=== PATIENT | male | born 1970 | race Caucasian/White ===

== ENCOUNTER → 2020-11-29 | Outpatient (CLI) | payer OTHER | END | disposition home or self-care (01) | LOC: COVID19 14:19 | PROVIDERS: ATTEND Nurse Practitioner Adult Health | DX: U07.1 COVID-19 (principal) ==

== ENCOUNTER → 2022-06-29 | Outpatient (CLI) | payer OTHER | END | disposition home or self-care (01) | LOC: CARD 12:30 | PROVIDERS: ATTEND Nurse Practitioner Family | DX: I08.0 Rheumatic disorders of both mitral and aortic valves (principal); M43.16 Spondylolisthesis, lumbar region; E11.9 Type 2 diabetes mellitus without complications; E83.110 Hereditary hemochromatosis; E78.5 Hyperlipidemia, unspecified; F33.1 Major depressive disorder, recurrent, moderate; R80.1 Persistent proteinuria, unspecified; Z95.0 Presence of cardiac pacemaker; M79.622 Pain in left upper arm ==

== ENCOUNTER → 2023-05-25 | Outpatient (CLI) | payer OTHER ==
[2023-05-25 13:55] LABS: BASO % 0.6 % (0.0-1.0); EOS % 1.1 % (1.0-4.0); HEMATOCRIT 43.8 % (42.0-52.0); LYMPH # 1.7 10*3/uL (1.3-4.4); LYMPH % 45.7 % (27.0-41.0); MEAN CELL VOLUME 89.9 fl (80.0-94.0); MEAN CORPUSCULAR HGB 32.2 pg (27.0-31.0); MEAN CORPUSCULAR HGB CONC 35.8 g/dl (33.0-37.0); MEAN PLATELET VOLUME 11.9 fl (9.6-12.3); MONO # 0.3 10*3/uL (0.1-1.0); NEUT # 1.6 10*3/uL (2.3-7.9); PLATELET COUNT AUTOMATED 130 10*3/uL (130-400); RED BLOOD COUNT 4.87 10*6/uL (4.50-5.90); RED CELL DISTRI WIDTH 11.8 % (0-14.5); WHITE BLOOD COUNT 3.6 10*3/uL (4.8-10.8)
== END | disposition home or self-care (01) ==
LOC: LAB 13:21
PROVIDERS: ATTEND Family Medicine
DX: E83.110 Hereditary hemochromatosis (principal)

== ENCOUNTER → 2023-05-28 | Outpatient (CLI) | payer OTHER ==
[2023-05-28 08:45] VITALS: BP 142/84
[2023-05-28 09:23] VITALS: BP 131/83
== END | disposition home or self-care (01) ==
LOC: PHLEB 01:31
PROVIDERS: ATTEND Physician Assistant Medical
DX: E83.110 Hereditary hemochromatosis (principal)

== ENCOUNTER → 2023-06-04 | Outpatient (CLI) | payer OTHER ==
[2023-06-04 08:38] LABS: BASO % 0.7 % (0.0-1.0); EOS # 0.1 10*3/uL (0.0-0.4); EOS % 1.2 % (1.0-4.0); HEMATOCRIT 41.8 % (42.0-52.0); LYMPH # 1.8 10*3/uL (1.3-4.4); LYMPH % 43.1 % (27.0-41.0); MEAN CELL VOLUME 88.6 fl (80.0-94.0); MEAN CORPUSCULAR HGB 31.8 pg (27.0-31.0); MEAN CORPUSCULAR HGB CONC 35.9 g/dl (33.0-37.0); MEAN PLATELET VOLUME 11.5 fl (9.6-12.3); MONO # 0.3 10*3/uL (0.1-1.0); NEUT % 47.3 % (47.0-73.0); PLATELET COUNT AUTOMATED 151 10*3/uL (130-400); RED BLOOD COUNT 4.72 10*6/uL (4.50-5.90); RED CELL DISTRI WIDTH 11.9 % (0-14.5); WHITE BLOOD COUNT 4.3 10*3/uL (4.8-10.8)
[2023-06-04 09:02] VITALS: BP 123/81
== END | disposition home or self-care (01) ==
LOC: PHLEB 08:13
PROVIDERS: ATTEND Physician Assistant Medical
DX: E83.110 Hereditary hemochromatosis (principal)

== ENCOUNTER → 2023-06-11 | Outpatient (CLI) | payer OTHER ==
[2023-06-11 08:36] LABS: BASO % 1.1 % (0.0-1.0); EOS # 0.1 10*3/uL (0.0-0.4); EOS % 1.9 % (1.0-4.0); HEMATOCRIT 39.9 % (42.0-52.0); LYMPH # 1.6 10*3/uL (1.3-4.4); LYMPH % 41.8 % (27.0-41.0); MEAN CELL VOLUME 90.1 fl (80.0-94.0); MEAN CORPUSCULAR HGB 32.5 pg (27.0-31.0); MEAN CORPUSCULAR HGB CONC 36.1 g/dl (33.0-37.0); MEAN PLATELET VOLUME 11.5 fl (9.6-12.3); MONO # 0.3 10*3/uL (0.1-1.0); NEUT # 1.7 10*3/uL (2.3-7.9); NEUT % 46.6 % (47.0-73.0); NUCLEATED RED BLOOD CELL 0.8 % (0.0-0.0); PLATELET COUNT AUTOMATED 143 10*3/uL (130-400); RED BLOOD COUNT 4.43 10*6/uL (4.50-5.90); RED CELL DISTRI WIDTH 13.4 % (0-14.5); WHITE BLOOD COUNT 3.7 10*3/uL (4.8-10.8)
[2023-06-11 09:20] VITALS: BP 140/88
[2023-06-11 09:52] VITALS: BP 130/92
== END | disposition home or self-care (01) ==
LOC: PHLEB 01:22
PROVIDERS: ATTEND Physician Assistant Medical
DX: E83.110 Hereditary hemochromatosis (principal)

== ENCOUNTER → 2023-06-25 | Outpatient (CLI) | payer OTHER ==
[2023-06-25 09:10] LABS: BASO % 0.6 % (0.0-1.0); EOS % 1.3 % (1.0-4.0); HEMATOCRIT 42.8 % (42.0-52.0); LYMPH # 1.3 10*3/uL (1.3-4.4); LYMPH % 42.5 % (27.0-41.0); MEAN CELL VOLUME 92.6 fl (80.0-94.0); MEAN CORPUSCULAR HGB 33.1 pg (27.0-31.0); MEAN CORPUSCULAR HGB CONC 35.7 g/dl (33.0-37.0); MEAN PLATELET VOLUME 11.8 fl (9.6-12.3); MONO # 0.2 10*3/uL (0.1-1.0); MONO % 7.8 % (3.0-9.0); NEUT # 1.5 10*3/uL (2.3-7.9); NEUT % 47.2 % (47.0-73.0); PLATELET COUNT AUTOMATED 115 10*3/uL (130-400); RED BLOOD COUNT 4.62 10*6/uL (4.50-5.90); WHITE BLOOD COUNT 3.1 10*3/uL (4.8-10.8)
[2023-06-25 10:19] VITALS: BP 136/80
[2023-06-25 10:26] VITALS: BP 127/77
== END | disposition home or self-care (01) ==
LOC: PHLEB 01:12
PROVIDERS: ATTEND Physician Assistant Medical
DX: E83.110 Hereditary hemochromatosis (principal)

== ENCOUNTER → 2023-07-09 | Outpatient (CLI) | payer OTHER ==
[2023-07-09 10:41] LABS: BASO % 0.9 % (0.0-1.0); EOS # 0.1 10*3/uL (0.0-0.4); EOS % 1.8 % (1.0-4.0); HEMATOCRIT 44.2 % (42.0-52.0); LYMPH # 1.5 10*3/uL (1.3-4.4); LYMPH % 45.4 % (27.0-41.0); MEAN CELL VOLUME 91.5 fl (80.0-94.0); MEAN CORPUSCULAR HGB 33.3 pg (27.0-31.0); MEAN CORPUSCULAR HGB CONC 36.4 g/dl (33.0-37.0); MEAN PLATELET VOLUME 11.7 fl (9.6-12.3); MONO # 0.3 10*3/uL (0.1-1.0); MONO % 8.3 % (3.0-9.0); NEUT # 1.4 10*3/uL (2.3-7.9); PLATELET COUNT AUTOMATED 129 10*3/uL (130-400); RED BLOOD COUNT 4.83 10*6/uL (4.50-5.90); WHITE BLOOD COUNT 3.3 10*3/uL (4.8-10.8)
[2023-07-09 11:00] VITALS: BP 154/94
[2023-07-09 11:50] VITALS: BP 137/97
== END | disposition home or self-care (01) ==
LOC: PHLEB 01:31
PROVIDERS: ATTEND Physician Assistant Medical
DX: E83.110 Hereditary hemochromatosis (principal)

== ENCOUNTER → 2023-07-16 | Outpatient (CLI) | payer OTHER ==
[2023-07-16 11:32] LABS: BASO % 0.5 % (0.0-1.0); EOS # 0.1 10*3/uL (0.0-0.4); EOS % 1.2 % (1.0-4.0); HEMATOCRIT 41.1 % (42.0-52.0); LYMPH # 1.6 10*3/uL (1.3-4.4); LYMPH % 39.6 % (27.0-41.0); MEAN CELL VOLUME 91.3 fl (80.0-94.0); MEAN PLATELET VOLUME 11.5 fl (9.6-12.3); MONO # 0.2 10*3/uL (0.1-1.0); MONO % 5.9 % (3.0-9.0); NEUT # 2.1 10*3/uL (2.3-7.9); NEUT % 52.1 % (47.0-73.0); PLATELET COUNT AUTOMATED 131 10*3/uL (130-400); RED CELL DISTRI WIDTH 12.7 % (0-14.5); WHITE BLOOD COUNT 4.1 10*3/uL (4.8-10.8)
[2023-07-16 11:45] LABS: MEAN CORPUSCULAR HGB 32.7 pg (27.0-31.0)
[2023-07-16 11:46] LABS: MEAN CORPUSCULAR HGB CONC 35.8 g/dl (33.0-37.0)
== END | disposition home or self-care (01) ==
LOC: PHLEB 10:34
PROVIDERS: ATTEND Physician Assistant Medical
DX: E83.110 Hereditary hemochromatosis (principal)

== ENCOUNTER → 2023-07-23 | Outpatient (CLI) | payer OTHER ==
[2023-07-23 10:45] LABS: BASO % 0.8 % (0.0-1.0); EOS # 0.1 10*3/uL (0.0-0.4); EOS % 1.3 % (1.0-4.0); HEMATOCRIT 43.9 % (42.0-52.0); LYMPH # 1.6 10*3/uL (1.3-4.4); LYMPH % 42.7 % (27.0-41.0); MEAN CELL VOLUME 94.4 fl (80.0-94.0); MEAN CORPUSCULAR HGB 32.7 pg (27.0-31.0); MEAN CORPUSCULAR HGB CONC 34.6 g/dl (33.0-37.0); MEAN PLATELET VOLUME 11.4 fl (9.6-12.3); MONO # 0.3 10*3/uL (0.1-1.0); MONO % 8.2 % (3.0-9.0); NEUT # 1.8 10*3/uL (2.3-7.9); NEUT % 46.5 % (47.0-73.0); PLATELET COUNT AUTOMATED 143 10*3/uL (130-400); RED BLOOD COUNT 4.65 10*6/uL (4.50-5.90); RED CELL DISTRI WIDTH 12.8 % (0-14.5); WHITE BLOOD COUNT 3.8 10*3/uL (4.8-10.8)
[2023-07-23 11:35] VITALS: BP 119/76
[2023-07-23 12:00] VITALS: BP 107/80
== END | disposition home or self-care (01) ==
LOC: PHLEB 00:26
PROVIDERS: ATTEND Physician Assistant Medical
DX: E83.110 Hereditary hemochromatosis (principal)

== ENCOUNTER → 2023-08-13 | Outpatient (CLI) | payer OTHER ==
[2023-08-13 10:40] VITALS: BP 140/83
[2023-08-13 11:15] VITALS: BP 143/89
== END ==
LOC: PHLEB 00:15
PROVIDERS: ATTEND Physician Assistant Medical
DX: E83.110 Hereditary hemochromatosis (principal)

== ENCOUNTER → 2023-12-01 | Outpatient (CLI) | payer OTHER ==
[2023-12-01 18:17] LABS: BASO % 0.5 % (0.0-1.0); EOS % 0.9 % (1.0-4.0); HEMATOCRIT 45.2 % (42.0-52.0); LYMPH # 2.1 10*3/uL (1.3-4.4); LYMPH % 46.6 % (27.0-41.0); MEAN CELL VOLUME 87.4 fl (80.0-94.0); MEAN CORPUSCULAR HGB 30.8 pg (27.0-31.0); MEAN CORPUSCULAR HGB CONC 35.2 g/dl (33.0-37.0); MEAN PLATELET VOLUME 11.7 fl (9.6-12.3); MONO # 0.2 10*3/uL (0.1-1.0); MONO % 5.2 % (3.0-9.0); NEUT % 46.3 % (47.0-73.0); PLATELET COUNT AUTOMATED 150 10*3/uL (130-400); RED BLOOD COUNT 5.17 10*6/uL (4.50-5.90); RED CELL DISTRI WIDTH 12.1 % (0-14.5); WHITE BLOOD COUNT 4.4 10*3/uL (4.8-10.8)
== END | disposition home or self-care (01) ==
LOC: LAB 17:14
PROVIDERS: ATTEND Physician Assistant Medical
DX: E83.110 Hereditary hemochromatosis (principal)

== ENCOUNTER → 2024-01-18 | Outpatient (CLI) | payer OTHER ==
[2024-01-18 08:06] LABS: BASO % 0.3 % (0.0-1.0); EOS % 0.9 % (1.0-4.0); HEMATOCRIT 46.7 % (42.0-52.0); LYMPH # 1.7 10*3/uL (1.3-4.4); LYMPH % 48.7 % (27.0-41.0); MEAN CORPUSCULAR HGB 31.6 pg (27.0-31.0); MEAN CORPUSCULAR HGB CONC 35.1 g/dl (33.0-37.0); MEAN PLATELET VOLUME 11.6 fl (9.6-12.3); MONO # 0.3 10*3/uL (0.1-1.0); MONO % 8.6 % (3.0-9.0); NEUT # 1.4 10*3/uL (2.3-7.9); NEUT % 40.9 % (47.0-73.0); PLATELET COUNT AUTOMATED 133 10*3/uL (130-400); RED BLOOD COUNT 5.19 10*6/uL (4.50-5.90); RED CELL DISTRI WIDTH 12.2 % (0-14.5); WHITE BLOOD COUNT 3.5 10*3/uL (4.8-10.8)
[2024-01-18 08:22] VITALS: BP 124/77
[2024-01-18 09:18] VITALS: BP 118/79
== END | disposition home or self-care (01) ==
LOC: PHLEB 01:39
PROVIDERS: ATTEND Physician Assistant Medical
DX: E83.110 Hereditary hemochromatosis (principal)

== ENCOUNTER → 2024-02-01 | Outpatient (CLI) | payer OTHER ==
[2024-02-01 07:57] LABS: BASO % 0.3 % (0.0-1.0); EOS % 1.1 % (1.0-4.0); HEMATOCRIT 45.1 % (42.0-52.0); LYMPH # 1.8 10*3/uL (1.3-4.4); LYMPH % 50.7 % (27.0-41.0); MEAN CELL VOLUME 90.9 fl (80.0-94.0); MEAN CORPUSCULAR HGB 31.5 pg (27.0-31.0); MEAN CORPUSCULAR HGB CONC 34.6 g/dl (33.0-37.0); MEAN PLATELET VOLUME 11.2 fl (9.6-12.3); MONO # 0.3 10*3/uL (0.1-1.0); MONO % 7.6 % (3.0-9.0); NEUT # 1.4 10*3/uL (2.3-7.9); NEUT % 39.7 % (47.0-73.0); PLATELET COUNT AUTOMATED 128 10*3/uL (130-400); RED BLOOD COUNT 4.96 10*6/uL (4.50-5.90); RED CELL DISTRI WIDTH 12.8 % (0-14.5); WHITE BLOOD COUNT 3.6 10*3/uL (4.8-10.8)
[2024-02-01 08:17] VITALS: BP 132/79
[2024-02-01 08:33] VITALS: BP 124/87
== END | disposition home or self-care (01) ==
LOC: PHLEB 01:03
PROVIDERS: ATTEND Physician Assistant Medical
DX: E83.110 Hereditary hemochromatosis (principal)

== ENCOUNTER → 2024-02-15 | Outpatient (CLI) | payer OTHER ==
[2024-02-15 07:54] LABS: BASO % 0.5 % (0.0-1.0); EOS % 1.1 % (1.0-4.0); HEMATOCRIT 44.7 % (42.0-52.0); LYMPH # 1.8 10*3/uL (1.3-4.4); LYMPH % 47.4 % (27.0-41.0); MEAN CORPUSCULAR HGB 31.7 pg (27.0-31.0); MEAN CORPUSCULAR HGB CONC 34.5 g/dl (33.0-37.0); MEAN PLATELET VOLUME 11.3 fl (9.6-12.3); MONO # 0.3 10*3/uL (0.1-1.0); NEUT # 1.6 10*3/uL (2.3-7.9); NEUT % 41.5 % (47.0-73.0); PLATELET COUNT AUTOMATED 133 10*3/uL (130-400); RED BLOOD COUNT 4.86 10*6/uL (4.50-5.90); RED CELL DISTRI WIDTH 13.2 % (0-14.5); WHITE BLOOD COUNT 3.8 10*3/uL (4.8-10.8)
[2024-02-15 08:26] VITALS: BP 145/88
[2024-02-15 08:51] VITALS: BP 135/81
== END | disposition home or self-care (01) ==
LOC: PHLEB 01-25 01:12
PROVIDERS: ATTEND Physician Assistant Medical
DX: E83.110 Hereditary hemochromatosis (principal)

== ENCOUNTER → 2024-02-29 | Outpatient (CLI) | payer OTHER ==
[2024-02-29 07:53] LABS: BASO % 0.8 % (0.0-1.0); EOS % 1.1 % (1.0-4.0); HEMATOCRIT 45.5 % (42.0-52.0); LYMPH # 1.8 10*3/uL (1.3-4.4); LYMPH % 46.6 % (27.0-41.0); MEAN CORPUSCULAR HGB 32.2 pg (27.0-31.0); MEAN CORPUSCULAR HGB CONC 33.8 g/dl (33.0-37.0); MEAN PLATELET VOLUME 11.2 fl (9.6-12.3); MONO # 0.3 10*3/uL (0.1-1.0); MONO % 8.2 % (3.0-9.0); NEUT # 1.6 10*3/uL (2.3-7.9); NEUT % 42.8 % (47.0-73.0); PLATELET COUNT AUTOMATED 132 10*3/uL (130-400); RED BLOOD COUNT 4.79 10*6/uL (4.50-5.90); RED CELL DISTRI WIDTH 12.8 % (0-14.5); WHITE BLOOD COUNT 3.8 10*3/uL (4.8-10.8)
== END | disposition home or self-care (01) ==
LOC: PHLEB 02:35 → LAB 02:35 → PHLEB 08:00
PROVIDERS: ATTEND Physician Assistant Medical
DX: E83.110 Hereditary hemochromatosis (principal)

== ENCOUNTER → 2024-03-01 | Outpatient (CLI) | payer OTHER ==
[2024-03-01 08:05] VITALS: BP 148/85
[2024-03-01 08:29] VITALS: BP 134/80
== END | disposition home or self-care (01) ==
LOC: PHLEB 02-29 08:00
PROVIDERS: ATTEND Physician Assistant Medical
DX: E83.110 Hereditary hemochromatosis (principal)

== ENCOUNTER → 2024-03-07 | Outpatient (CLI) | payer OTHER ==
[2024-03-07 08:43] LABS: BASO % 0.8 % (0.0-1.0); EOS # 0.1 10*3/uL (0.0-0.4); EOS % 1.7 % (1.0-4.0); HEMATOCRIT 43.4 % (42.0-52.0); LYMPH # 1.6 10*3/uL (1.3-4.4); LYMPH % 44.3 % (27.0-41.0); MEAN CELL VOLUME 93.7 fl (80.0-94.0); MEAN CORPUSCULAR HGB 31.7 pg (27.0-31.0); MEAN CORPUSCULAR HGB CONC 33.9 g/dl (33.0-37.0); MEAN PLATELET VOLUME 11.3 fl (9.6-12.3); MONO # 0.3 10*3/uL (0.1-1.0); MONO % 8.7 % (3.0-9.0); NEUT # 1.6 10*3/uL (2.3-7.9); NEUT % 43.4 % (47.0-73.0); PLATELET COUNT AUTOMATED 134 10*3/uL (130-400); RED BLOOD COUNT 4.63 10*6/uL (4.50-5.90); RED CELL DISTRI WIDTH 12.5 % (0-14.5); WHITE BLOOD COUNT 3.6 10*3/uL (4.8-10.8)
== END | disposition home or self-care (01) ==
LOC: EDSTATUS 00:51 → LAB 00:51
PROVIDERS: ATTEND Physician Assistant Medical
DX: E83.110 Hereditary hemochromatosis (principal)

== ENCOUNTER → 2024-03-08 | Outpatient (CLI) | payer OTHER ==
[2024-03-08 08:30] VITALS: BP 145/86
[2024-03-08 08:45] VITALS: BP 134/83
== END | disposition home or self-care (01) ==
LOC: PHLEB 01:58
PROVIDERS: ATTEND Physician Assistant Medical
DX: E83.110 Hereditary hemochromatosis (principal)

== ENCOUNTER → 2024-05-09 | Outpatient (CLI) | payer OTHER ==
[2024-05-09 17:39] LABS: BASO % 0.8 % (0.0-1.0); LYMPH # 1.6 10*3/uL (1.3-4.4); MEAN CELL VOLUME 91.2 fl (80.0-94.0); MEAN CORPUSCULAR HGB 31.6 pg (27.0-31.0); MEAN CORPUSCULAR HGB CONC 34.6 g/dl (33.0-37.0); MEAN PLATELET VOLUME 11.4 fl (9.6-12.3); MONO # 0.3 10*3/uL (0.1-1.0); MONO % 7.3 % (3.0-9.0); NEUT # 1.9 10*3/uL (2.3-7.9); NEUT % 48.4 % (47.0-73.0); PLATELET COUNT AUTOMATED 130 10*3/uL (130-400); RED BLOOD COUNT 5.48 10*6/uL (4.50-5.90); RED CELL DISTRI WIDTH 11.9 % (0-14.5); WHITE BLOOD COUNT 3.9 10*3/uL (4.8-10.8)
== END ==
LOC: LAB 16:30
PROVIDERS: ATTEND Physician Assistant Medical
DX: E83.119 Hemochromatosis, unspecified (principal)

== ENCOUNTER → 2024-05-12 | Outpatient (CLI) | payer OTHER ==
[2024-05-12 08:06] VITALS: BP 131/81
[2024-05-12 08:19] VITALS: BP 133/80
== END | disposition home or self-care (01) ==
LOC: PHLEB 05-10 01:01
PROVIDERS: ATTEND Physician Assistant Medical
DX: E83.110 Hereditary hemochromatosis (principal)

== ENCOUNTER → 2024-05-16 | Outpatient (CLI) | payer OTHER ==
[2024-05-16 18:03] LABS: BASO % 0.8 % (0.0-1.0); EOS # 0.1 10*3/uL (0.0-0.4); HEMATOCRIT 47.4 % (42.0-52.0); LYMPH # 2.2 10*3/uL (1.3-4.4); LYMPH % 43.7 % (27.0-41.0); MEAN CELL VOLUME 90.5 fl (80.0-94.0); MEAN CORPUSCULAR HGB 31.9 pg (27.0-31.0); MEAN CORPUSCULAR HGB CONC 35.2 g/dl (33.0-37.0); MEAN PLATELET VOLUME 12.2 fl (9.6-12.3); MONO # 0.4 10*3/uL (0.1-1.0); MONO % 7.5 % (3.0-9.0); NEUT # 2.3 10*3/uL (2.3-7.9); NEUT % 46.4 % (47.0-73.0); PLATELET COUNT AUTOMATED 127 10*3/uL (130-400); RED BLOOD COUNT 5.24 10*6/uL (4.50-5.90); WHITE BLOOD COUNT 4.9 10*3/uL (4.8-10.8)
== END | disposition home or self-care (01) ==
LOC: LAB 17:44
PROVIDERS: Physician Assistant Medical; ATTEND Family Medicine
DX: E83.110 Hereditary hemochromatosis (principal)